=== PATIENT | female | born 1955 | race Caucasian/White ===

== ENCOUNTER 2024-07-29 13:05 | Emergency (ER) | payer MEDICARE, OTHER ==
[~2024-07-29] VITALS: Ht 172.7 cm; Wt 65.5 kg
--- NOTE | ~2024-07-29 | EKG ---
[facility] [address] [facility] [place], [place] [address] Draft EK completed, results pending confirmation PATIENT NAME: BOYERLEXUS Electrocardiogram DATE OF : 51 PHYSICIAN: PRELIMINARY REPORT #: [id number] REPORT IS CONFIDENTIAL AND NOT TO BE RELEASED WITHOUT AUTHORIZATION
[2024-07-29 13:35] LABS: BASOPHILS 0.2 % (0-2); EOSINOPHILS 0.1 % (0-6); HEMATOCRIT 40.4 % (35.0-50.0); HEMOGLOBIN 13.9 g/dL (12.0-18.0); LYMPHOCYTES 13.7 % (24-44); MCH 30.6 (27-36); MCHC 34.5 g/dl (30-36); MCV 88.7 fl (81-99); MONOCYTES 5.5 % (0-12); NEUTROPHILS 80.5 % (39-80); PLATELET COUNT 183 K/uL (140-440); RBC 4.56 M/ul (4.3-5.7); RDW 13.2 (10.5-15.0)
[2024-07-29 13:53] LABS: ALBUMIN 3.5 g/dL (3.4-5.0); ALBUMIN/GLOBULIN RATIO 0.97 (1.1-2.4); ANION GAP 14.5 (7-21); BILIRUBIN, TOTAL 0.6 mg/dL (0.2-1.0); BUN/CREATININE RATIO 19.04 (6.0-28.6); CREATININE, SERUM 1.05 mg/dL (0.55-1.02); POTASSIUM 3.5 mmol/L (3.5-5.1); PROTEIN, TOTAL 7.1 g/dL (6.4-8.2)
[2024-07-29 15:34] VITALS: BP 125/74
--- NOTE | 2024-07-31 09:17 | EKG ---
[facility] [address] [facility] [place] [address] Signed Normal sinus rhythm Normal ECG No previous ECGs available Confirmed by Kevin Rob MD ([id number]) on 07/31/2024 9:16:52 AM Electronically Signed By: KEVIN ROB MD 07/31/24 0917 PATIENT NAME: LEXUS BOYER Electrocardiogram DATE OF : 51 PHYSICIAN: KEVIN ROB MD REPORT #: [id number] REPORT IS CONFIDENTIAL AND NOT TO BE RELEASED WITHOUT AUTHORIZATION
== END 2024-07-29 15:36 | disposition home or self-care (01) ==
LOC: ED 13:05
PROVIDERS: Emergency Medicine
DX: R55 Syncope and collapse (principal); Z88.8 Allergy status to other drugs, medicaments and biological substances
CPT/HCPCS: 36415; 70450; 70486; 72125; 80053; 84484; 85025; 93005; 93010; 99284-25

== ENCOUNTER 2025-01-27 09:18 | Day surgery (SDC) | payer MEDICARE, OTHER ==
[~2025-01-27] VITALS: Ht 167.6 cm; Wt 63.0 kg
[~2025-01-27 09:18] MED LIST: ATORVASTATIN CA10 MG PO; CALCIUM + D3 E1 EACH PO; DOXYCYCLINE HY100 MG PO; FISH OIL + D31 EACH PO; IBLOOD GLUCOSE TEST STRIP 1 EA TEST VI PRN; LACTATED RINGER'S 1,000 ML IV SCH; LIDOCAINE HCL 1% 5 ML SDV INJ ONE; MAGNESIUM500 MG PO; MULTI VITAMIN1 EACH PO; SYNTHROID100 MCG PO
[2025-01-27 09:46] VITALS: BP 115/76
[2025-01-27] MEDS ORDERED: ROSUVASTATIN CAL5 MG PO (09:46)
[2025-01-27] MEDS ORDERED: LIDOCAINE HCL 2% 5 ML SDV ONE (11:19)
--- NOTE | 2025-01-27 12:30 | NUR ---
01/27/25 1230 Val Fairchild 1222: PT ARRIVES IN PACU NON AROUSAL. REPORT RECEIVED FROM MUCK MINER AND DIETARY SUPERVISOR.
[2025-01-27 13:05] VITALS: BP 130/87
== END 2025-01-27 13:16 | disposition home or self-care (01) ==
LOC: DS 09:18
PROVIDERS: ATTEND Surgery
PROC: 0DJD8ZZ Inspection of Lower Intestinal Tract, Via Natural or Artificial Opening Endoscopic (ICD-10-PCS; principal; 2025-01-27 11:00)
DX: Z12.11 Encounter for screening for malignant neoplasm of colon (principal); E89.0 Postprocedural hypothyroidism; E78.5 Hyperlipidemia, unspecified; Z79.890 Hormone replacement therapy; Z79.899 Other long term (current) drug therapy
CPT/HCPCS: 00811; J2003; J2704; J7121